=== PATIENT | male | born 1990 | race Caucasian/White ===

== ENCOUNTER 2024-04-16 23:43 | Observation (INO) | payer OTHER, SELFPAY ==
[2024-04-16 23:47] VITALS: BP 120/75; PULSE 77; TEMP 36.9; O2SAT 98; BMI 27.4
[2024-04-17] VITALS (14 sets, daily range): BP systolic 109–141; BP diastolic 62–92; PULSE 52–94; TEMP 36.4–37.2; O2SAT 91–100; BMI 26.6
--- NOTE | 2024-04-17 00:05 | ED_ITS ---
HPI - Abdominal Pain General Chief Complaint: Abdominal Pain Stated Complaint: ABD PAIN Time Seen by Provider: 04/16/24 23:46 Source: patient Mode of arrival: walk-in Limitations: no limitations History of Present Illness HPI narrative: This 33-year-old male with no significant medical history presents for evaluation of right lower quadrant abdominal pain. 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 He has not had any vomiting or diarrhea. He has not had any appetite all day. He states that the pain has been consistent and worsening. He has been living with his legs flexed up to relieve pain in his belly. He has not had a fever or chills. There is no radiation into his back. He states he has been urinating normally. Related Data Home Medications ?Medication ?Instructions ?Recorded ?Confirmed No Known Home Medications 04/16/24 04/16/24 Allergies Allergy/AdvReac Type Severity Reaction Status Date / Time No Known Drug Allergies Allergy Verified 04/16/24 23:47 Review of Systems ROS Status of ROS 10 or more systems reviewed and unremark able except as noted in history and below Exam Narrative Exam Narrative: Vital signs and Nursing Notes reviewed: Vital signs are stable, the patient is afebrile with a normal pulse, normal blood pressure, he is not hypoxic with pulse ox of 98% on room air General: Awake, alert, oriented, no acute distress, lying comfortably on the stretcher HEENT: Normocephalic atraumatic, mucous membranes are moist and pink, eyes are clear, normal conjunctiva, vision is grossly intact Chest: Lungs are clear to auscultation with good air entry, there is no wheezing rhonchi or rales appreciated no accessory muscle use, patient is speaking in complete sentences-no chest wall tenderness to palpation CVS: Regular rate and rhythm S1-S2, no murmurs rubs or gallops, pulses are brisk and equal bilaterally ABD: Soft, tenderness in the right lower quadrant at McBurney's point as well as rebound in this area, negative Rovsing sign, no right upper quadrant tenderness. No CVA tenderness. Extremities: Moving all extremities, no lower extremity tenderness or swelling noted, negative Homans' sign, pulses are brisk and equal bilaterally Skin: Normal in appearance without rash,pallor, petechiae or purpura Neuro: No focal deficits Constitutional Vital Signs, click to edit/add: Last Vital Signs Temp 98.5 F 04/16/24 23:47 Pulse 82 04/17/24 02:18 Resp 16 04/17/24 02:18 BP 120/75 04/16/24 23:47 Pulse Ox 100 04/17/24 02:18 O2 Del Method Room Air 04/16/24 23:47 Course Vital Signs Vital signs: Vital Signs Temperature 98.5 F 04/16/24 23:47 Pulse Rate 77 04/16/24 23:47 Respiratory Rate 16 04/16/24 23:47 Blood Pressure 120/75 04/16/24 23:47 Pulse Oximetry 98 04/16/24 23:47 Oxygen Delivery Method Room Air 04/16/24 23:47 Temperature 98.5 F 04/16/24 23:47 Pulse Rate 82 04/17/24 02:18 Respiratory Rate 16 04/17/24 02:18 Blood Pressure 120/75 04/16/24 23:47 Pulse Oximetry 100 04/17/24 02:18 Oxygen Delivery Method Room Air 04/16/24 23:47 MDM - Abdominal Pain MDM Narrative Medical decision making narrative: This otherwise healthy 33-year-old male presents for evaluation of right lower quadrant abdominal pain that started around 3 AM last night after having chicken nuggets from the cafeteria at [employer] where he works. He has had nausea but no vomiting. He has not had any fevers or chills. He has no chest pain or shortness of breath. He is tender in the right lower quadrant with mild voluntary guarding and rebound. He has a negative Rovsing sign. No flank tenderness. An IV was placed and he was medicated with IV fluids, Toradol and Zofran. On reevaluation he is feeling better and requires nothing else for pain. Routine labs are reviewed. He has an elevated white count at 16.6. Hemoglobin is normal. Electrolytes are normal. CT scan of the abdomen pelvis with IV contrast shows an acute appendicitis with an appendicolith without abscess or perforation. This was discussed with the patient. He will require admission and surgical consultation. The case was discussed with Dr. Sultana, general surgery on-call. He is admitted for observation. He was given a dose of Zosyn prior to admission to the floor. I offered him additional pain me dication but he declines. NPO status was instituted at this time however the patient states he has not had anything to eat in the past 24 hours because he has not had an appetite. Medical Records Medical records narrative: The [address] [address] [address] Scan Report Signed Patient: BRITTANY ROBERTSON MR#: [id number] : 1990 Acct:[id number] Age/Sex: 33 / M ADM Date: 04/16/24 Loc: ER Attending Dr: Ordering Physician: Claudette Shanks Date of Service: 04/17/24 Procedure(s): CT abdomen pelvis w con Accession Number(s): [id number] cc: Physician,Non-Staff M.DShari~ The [address] [address] Patient Name: BRITTANY ROBERTSON MRN: [id number] date: 1990 Sex: M Assigned Patient Location: ER Current Patient Location: ER Accession/Order Number: [id number] Exam Date: 04/17/2024 00:43 Report Date: 04/17/2024 02:53 At the request of: CLAUDETTE SHANKS Procedure: CT abdomen pelvis w con EXAMINATION: CT abdomen pelvis w con HISTORY: RLQ abd pain COMPARISON: None. TECHNIQUE: CT abdomen pelvis with contrast. Dose reduction techniques were achieved by using: automated exposure control and/or adjustment of mA and /or kV according to patient size and/or use of iterative reconstruction technique. FINDINGS: No airspace consolidation lung bases. CT ABDOMEN: No focal lesions in the liver, spleen, adrenal glands, gallbladder, pancreas. No hydronephrosis or hydroureter. CT PELVIS: The diameter of the appendix measuring 11 mm, with appendicoliths present and adjacent polo-appendiceal stranding. No perforation or abscess. No abnormal small bowel distention. Minimal stool in the colon. No free air. Urinary bladder mildly distended. CT/CT abdomen pelvis w con IMPRESSION: Positive for appendicitis. Appendicoliths are present. No perforation or abscess noted. Critical results were NOTIFIED by TELEPHONE BY Dr. Juan Antonio Sethi to Dr. Shanks At 04/17/2024 2:46 AM EDT. Lab Data Labs: Lab Results 04/16/24 Range/Units 23:54 WBC 16.6 H (4.0-11.0) 10^3/uL RBC 5.36 (4.70-6.10) 10^6/uL Hgb 15.5 (14.0-18.0) g/dL Hct 45.6 (42.0-54.0) % MCV 85.1 (80.0-94.0) fL MCH 28.9 (25.9-34.0) pg MCHC 34.0 (29.9-35.2) g/dL RDW 12.9 (11.0-15.0) % Plt Count 252 (150-450) 10^3/uL MPV 9.8 (9.5-13.5) fL Neut % (Auto) 78.2 H (43.0-75.0) % Lymph % (Auto) 15.0 L (20.5-60.0) % [place] % (Auto) 6.1 (1.7-12.0) % Eos % (Auto) 0.1 L (0.9-7.0) % Baso % (Auto) 0.2 (0.2-2.0) % Neut # (Auto) 13.0 H (1.4-6.5) 10^3/uL Lymph # (Auto) 2.5 (1.2-3.8) 10^3/uL [place] # (Auto) 1.0 H (0.3-0.8) 10^3/uL Eos # (Auto) 0.0 (0.0-0.7) 10^3/uL Baso # (Auto) 0.0 (0.0-0.1) 10^3/uL Abs Immat Gran (auto) 0.06 H (0.00-0.03) 10^3/uL Imm/Tot Granulo (auto) 0.4 (0.0-0.5) % Sodium 134 L (136-145) mmol/L Potassium 3.8 (3.5-5.1) mmol/L Chloride 99 (98-107) mmol/L Carbon Dioxide 27.1 (21.0-32.0) mmol/L Anion Gap 11.7 BUN 11.0 (7.0-18.0) mg/dL Creatinine 0.99 (0.70-1.30) mg/dL Est GFR ( Amer) >60 (>=60) Est GFR (Non-Af Amer) >60 (>=60) BUN/Creatinine Ratio 11.1 Glucose 121 H (74-106) mg/dL Calcium 8.8 (8.5-10.1) mg/dL Total Bilirubin 1.7 H (0.2-1.0) mg/dL AST 10 L (15-37) U/L ALT 25 (16-63) U/L Alkaline Phosphatase 65 (46-116) U/L Total Protein 7.7 (6.4-8.2) g/dL Albumin 4.0 (3.4-5.0) g/dL Globulin 3.7 g/dL Albumin/Globulin Ratio 1.1 Lipase 19.0 (16.0-77.0) U/L Discharge Plan Discharge Chief Complaint: Abdominal Pain Clinical Impression: Acute appendicitis Patient Disposition: Admitted as Observation Time of Disposition Decision: 03:00 Condition: Good Prescriptions / Home Meds: No Action No Known Home Medications Print Language: Mohawk Referrals: Physician,Non-Staff, MD [Primary Care Provider] - 1 week
[2024-04-17 00:26] LABS: Basophils Percent Auto 0.2 % (0.2-2.0); Eosinophils Percent Auto 0.1 % (0.9-7.0); Hematocrit 45.6 % (42.0-54.0); Hemoglobin 15.5 g/dL (14.0-18.0); Immature Granulocytes Abs Auto 0.06 10^3/uL (0.00-0.03); Immature Granulocytes Pct Auto 0.4 % (0.0-0.5); Lymphocytes Absolute Auto 2.5 10^3/uL (1.2-3.8); Mean Corpuscular Hemoglobin 28.9 pg (25.9-34.0); Mean Corpuscular Volume 85.1 fL (80.0-94.0); Mean Platelet Volume 9.8 fL (9.5-13.5); Monocytes Percent Auto 6.1 % (1.7-12.0); Neutrophils Percent Auto 78.2 % (43.0-75.0); Platelet Count 252 10^3/uL (150-450); Red Blood Count 5.36 10^6/uL (4.70-6.10); Red Cell Distribution Width 12.9 % (11.0-15.0); White Blood Count 16.6 10^3/uL (4.0-11.0)
--- NOTE | 2024-04-17 00:32 | CT_ITS ---
The [place] [address] [place] [address] Patient Name: BRITTANY ROBERTSON MRN: [id number] date: 1990 Sex: M Assigned Patient Location: ER Current Patient Location: Accession/Order Number: [id number] Exam Date: 04/17/2024 00:43 Report Date: 04/17/2024 02:53 At the request of: OLIVIA SHANKS Procedure: CT abdomen pelvis w con EXAMINATION: CT abdomen pelvis w con HISTORY: RLQ abd pain COMPARISON: None. TECHNIQUE: CT abdomen pelvis with contrast. Dose reduction techniques were achieved by using: automated exposure control and/or adjustment of mA and /or kV according to patient size and/or use of iterative reconstruction technique. FINDINGS: No airspace consolidation lung bases. CT ABDOMEN: No focal lesions in the liver, spleen, adrenal glands, gallbladder, pancreas. No hydronephrosis or hydroureter. CT PELVIS: The diameter of the appendix measuring 11 mm, with appendicoliths present and adjacent polo-appendiceal stranding. No perforation or abscess. No abnormal small bowel distention. Minimal stool in the colon. No free air. Urinary bladder mildly distended. CT/CT abdomen pelvis w con IMPRESSION: Positive for appendicitis. Appendicoliths are present. No perforation or abscess noted. Critical results were NOTIFIED by TELEPHONE BY Dr. Darío Sethi to Dr. Shanks At 04/17/2024 2:46 AM EDT. Electronically authenticated by: DARÍO SETHI Date: 04/17/2024 02:53
[2024-04-17] MEDS: KETOROLAC TROMETHAMINE 30 MG/ML VIAL IVP ×2 (00:37→16:31)
[2024-04-17] MEDS: 0.9 % SODIUM CHLORIDE 1,000 ML 1000 ML IV (00:37)
[2024-04-17 00:38] LABS: Alanine Aminotransferase 25 U/L (16-63); Albumin Globulin Ratio 1.1; Alkaline Phosphatase 65 U/L (46-116); Anion Gap 11.7; Aspartate Amino Transferase 10 U/L (15-37); BUN Creatinine Ratio 11.1; Bilirubin Total 1.7 mg/dL (0.2-1.0); Calcium 8.8 mg/dL (8.5-10.1); Carbon Dioxide 27.1 mmol/L (21.0-32.0); Chloride 99 mmol/L (98-107); Estimated GFR (African America >60 (>=60); Estimated GFR (Non-African Ame >60 (>=60); Globulin 3.7 g/dL; Glucose 121 mg/dL (74-106); Potassium 3.8 mmol/L (3.5-5.1); Sodium 134 mmol/L (136-145); Total Protein 7.7 g/dL (6.4-8.2)
[2024-04-17] MEDS: ONDANSETRON PF 4 MG/2 ML VIAL IV (00:38)
[2024-04-17] MEDS: PIPERACILLIN SODIUM/TAZOBACTAM 3.375 GM in 0.9 % SODIUM CHLORIDE 50 ML IV ×2 (03:27→09:18)
[2024-04-17] MEDS: 0.9 % SODIUM CHLORIDE 1,000 ML 125 ML IV (03:59)
[2024-04-17] MEDS: LACTATED RINGER'S SOLUTION 1,000 ML 1000 ML IV (08:25)
--- NOTE | 2024-04-17 09:12 | P.GSHP_ITS ---
History of Present Illness History of Present Illness Chief complaint: ABD PAIN ACUTE APPENDICITIS Narrative: 33 yo M presents with 12 hr onsent of RLQ abd pain. Has some associated nausea. No prior surgeries. No allergies. No recent sick contacts. CT A/P revealed acute appendicitis with appendicoliths, no perforation/large fluid collections. Discussed surgical options and risks. Pt signed informed consent and questions answered. Denies any current f/c, n/v, sob or chest pain Review of Systems ROS Status of ROS 10 or more systems reviewed and unremark able except as noted in history and below [facility] Medical History (Updated 04/17/24 @ 04:21 by Gladys Brown) No pertinent past medical history ?Z78.9 - Other specified health status (ICD-10) Family History (Updated 04/17/24 @ 04:22 by Gladys Brown) Grandmother Family history of myocardial infarction Social History (Updated 04/17/24 @ 04:23 by Gladys Brown) Within the past year, how often did you have a drink containing alcohol: monthly or less Smoking status: Former smoker Non-prescribed substance use: denies use Previous occupational history: [employer] Highest level of school completed/degree received: high school graduate Are you now , , , , never or living with a partner: never In a typical week, how many times do you talk on the telephone with family, friends, or neighbors: 3 or more times per week How often do you get together with friends or relatives: 3 or more times per week How often do you attend alevism or methodist services: never Little interest or pleasure in doing things: not at all Feeling down, depressed, or hopeless: not at all Feel stressed/tense/nervous/anxious/difficulty sleeping: not at all Do you think of yourself as: straight/heterosexual Gender Identity: male Meds Home Medications and Allergies Home Medications ?Medication ?Instructions ?Recorded ?Confirmed ?Type No Known Home Medications 04/16/24 04/16/24 History Allergies Allergy/AdvReac Type Severity Reaction Status Date / Time No Known Drug Allergies Allergy Verified 04/16/24 23:47 Exam Constitutional Vital Signs, click to edit/add: Last Vital Signs Temp 98.3 F 04/17/24 08:13 Pulse 71 04/17/24 08:13 Resp 18 04/17/24 08:13 BP 113/70 04/17/24 08:13 Pulse Ox 96 04/17/24 08:13 O2 Del Method Room Air 04/17/24 08:13 Common normals: no apparent distress, average body habitus and oriented x3 HENMT Common normals: normocephalic Head and scalp: atraumatic Eye Common normals: PERRL and EOMs intact bilaterally Respiratory Common normals: normal respiratory effort and no retractions Cardio Common normals: no JVD Rate: regular rate GI Palpation: soft and tender (tender in RLQ) Other: no rebound, non peritoneal Extremity Common normals: normal to inspection and full ROM Neuro Common normals: oriented x3 Sensorium/orientation: awake, alert and oriented to person Psych Appearance: grossly normal and well kempt Assessment and Plan Assessment and Plan (1) Acute appendicitis: Plan Plan for laparoscopic appendectomy, post op orders to follow, consent obtained and RN witnessed Cont IV Abx and IV fluids Possible d/c later today if doing well. F/U in 10 days in clinic for post op check Scripts in chart for d/c Urinary Catheter Management Urinary Catheter Management Urethral: Cath placed during this visit: no
--- NOTE | 2024-04-17 09:19 | W.PM.PROCNOT ---
Date of procedure: 04/17/24 Pre-op diagnosis: acute appendicitis Post-op diagnosis: other (acute appendicitis with opaque fluid in abdomen, wound class 4) Procedure: Procedure laparoscopic Appendectomy with lavage The patient was taken to Operating Room, identified as the correct patient and the procedure verified as Appendectomy. A Time Out was held and the above information confirmed. The patient was placed in the supine position and general anesthesia was induced, along with placement of EPC cuffs, and a Jimenez catheter. The abdomen was prepped and draped in a sterile fashion. All port site were injected with local anesthetic. A one centimeter left umbilical incision was made and the peritoneal cavity was accessed using the optiview technique via a 5mm port. The pneumoperitoneum was then established to steady pressure of 15 mmHg. Upon entrance with camera, no bowel injury was noted.? An additional 5 mm cannula was then placed in the supra pubic region of the abdomen and a 12 mm port in the LLQ under direct vision. A careful evaluation of the entire abdomen was carried out. The patient was placed in Trendelenburg and left lateral decubitus position. The small intestines were retracted in the cephalad and left lateral direction away from the pelvis and right lower quadrant. The patient was found to have an enlarged and inflamed appendix that was extending into the pelvis with associated opaque fluid consistent with wound class 4. There was suspicion of perforation but nothing evident. The appendix was carefully dissected. A window was made in the mesoappendix at the base of the appendix. A endo ligasure device was used to divide mesoappendix. The appendix was divided at its base using an endo-CARLOS stapler. Minimal to no appendiceal stump was left in place. There was no evidence of bleeding, leakage, or complication after division of the appendix. Irrigation was also performed and irrigate suctioned from the abdomen as well.? The 12mm port site was closed using 0 Vicryl at the level of the fascia using a suture passer technique. All trocars were removed under direct vision. No bleeding was noted. The port skin sites were closed using 4-0 monocryl followed by skin glue. Instrument, sponge, and needle counts were correct at the conclusion of the case. Patient tolerated the procedure well without any complications.? Patient was extubated and was transferred to PACU in stable condition.? Anesthesia: GETA Surgeon: Elliot Sultana Estimated blood loss (mL): 5 Pathology: other (appendix) Condition: stable Disposition: PACU
[2024-04-17] MEDS: BUPIVACAINE HCL 0.5% PF 50 MG/10 ML VIAL 20 ML INJ (10:02)
[2024-04-17] MEDS: OXYCODONE HCL/ACETAMINOPHEN 5MG/325MG 1 TAB PO (13:54)
[2024-04-17] MEDS: ACETAMINOPHEN 1,000 MG/100 ML PREMIX 400 MG IV (16:31)
--- NOTE | 2024-04-18 10:55 | CM.DCFOLLOWU ---
Person spoke with: patient How are you feeling? well How is your pain? manageable Did you understand your discharge instructions? yes Do you have any questions about your discharge instructions? no Were you given any prescriptions at discharge? yes Were you able to get your prescriptions filled? yes Do you understand how to take your medications as ordered? yes Do you have any questions about your follow up appointment and do you plan to keep your follow up appointment? no questions, reviewed follow up Is there anything else that you would like to discuss? no Questions/Comments/Concerns/Other: N/A
== END 2024-04-17 18:02 | disposition home or self-care (01) ==
LOC: ER 04-17 03:02 → MS 04-17 04:06
PROVIDERS: Admitting Provider Surgery; Emergency Provider Emergency Medicine; Visit Provider Surgery
PROC: (CPT 840; principal; 2024-04-17 09:00)
DX: K35.80 Unspecified acute appendicitis (principal); Z87.891 Personal history of nicotine dependence
CPT/HCPCS: 44970; 36415; 74177; 80053; 81001; 83690; 85025; 88304; 94667; 96365; 96375; 99284; G0378; J1094; J2704; Q9967